=== PATIENT | female | born 1995 | race Caucasian/White ===

== ENCOUNTER 2024-08-22 13:19 | Observation (INO) | payer OTHER, SELFPAY ==
[2024-08-22] VITALS (13 sets, daily range): BP systolic 110–115; BP diastolic 62–72; PULSE 81–97; TEMP 36.6; O2SAT 97–99; BMI 51.0
--- OUTSIDE RECORDS SUMMARY | 2024-08-22 13:34 | XMS_ITS | Clinical Summary ---
Author Organization [facility] Care Team Providers Care Business Services Clerk Name Role Phone Unavailable Primary Care Provider Unavailabl e Social History Tobacco Use Types Packs/Day Years Used Date Smoking Tobacco: Never Assessed Comments Unknown Sex and Gender Information Value Date Recorded Sex Assigned at Not on file Legal Sex Female 11:46 AM MANAGEMENT MANAGER Gender Identity Not on file Sexual Orientation Not on file Plan of Treatment Health Maintenance Due Date Last Done Comments Hepatitis C Virus (HCV) Screening 1994 Pap Smear 12/03/2015 Influenza Immunization (#1) 2023 12/22/2020 SARS-COV-2 Immunization ( season) 2023 09/05/2020, 08/02/2020 Respiratory Syncytial Virus (RSV) Immunization (Adult) (1 - 1-dose 75+ series) 2069 Hepatitis B Immunization Completed 996, 02/02/1995, 1994 DTaP/Tdap/Td Immunization Discontinued 2016, 05/21/1996, 06/22/1995, Additional history exists Meningococcal Immunization (ACWY) Aged Out 05/11/2016 No longer eligible based on patient's age to complete this topic TdaP Immunization Completed 05/11/2016 Human Papillomavirus (HPV) Immunization Discontinued 11/17/2016, 07/13/2016, 05/11/2016 Pneumococcal Immunization Combined Aged Out No longer eligible based on patient's age to complete this topic Rotavirus Immunization Aged Out No lo nger eligible based on patient's age to complete this topic
--- OUTSIDE RECORDS SUMMARY | 2024-08-22 13:34 | XMS_ITS | Referral Summary ---
Author Organization [facility] at the [facility] Office Center Address [address] [place] [address] Care Team Providers Care Flatbed Driver Name Role Phone Kwame Barragan MD Primary Care Provider [phone] Allergies Active Allergy Reactions Criticality Noted Date Comments Amoxicillin Hives,Rash Medium 10/25/2018 rash Medications ascorbic acid (VITAMIN C) 100 mg tablet Vitamin C Active omeprazole (PriLOSEC) 20 mg capsule Take 1 capsule by mouth daily Active triamcinolone (KENALOG) 0.1 % creamIndication s:Rash Apply to affected area 1-2 times daily as needed. Avoid face and groin. 30 g 5 05/03/2022 Active fluconazole (DIFLUCAN) 150 mg tabletIndicatio ns:Rash Take 1 tablet (150 mg total) by mouth as directed Take one tab now. Repeat in 7 days if symptoms persist. 2 tablet 05/06/2022 Active Active Problems No known active problems Immunizations Immunization Administration Dates Next Due DTP / HiB 05/21/1996, 6,04/18/1995,02/02 HPV9 11/17/2016,07/13/2016,05/11/2016 Hep B, Adolescent or Pediatric 06/22/1995,1994,1994 Influenza, Quadrivalent, Spl it, Preservative Free, Intramuscular 12/22/2020 Influenza, Unspecified 01/07/2022 MMR 05/21/1996 Meningococcal MCV4P (Menactra) 05/11/2016 OPV 06/22/1995,04/18/1995,02/02/1995 Tdap 05/11/2016 Varicella 01/19/2021,12/22/2020 Social History Tobacco Use Types Packs/Day Years Used Date Smoking Tobacco: Never Smokeless Tobacco: Never Tobacco Cessation:Counseling Given: Not Answered Alcohol Use Standard Drinks/Week Comments Yes 0 (1 standard drink = 0.6 oz pur e alcohol) AUDIT-C Answer Date Recorded Q1: How often do you have a drink containing alc ohol? Monthly or less 05/03/2022 Q2: How many drinks containi ng alcohol do you have on a typical day when you are drinking? 1 or 2 05/03/2022 Frequency of Binge Drinking Not on file 04/21 PHQ-2 Answer Date Recorded PHQ-2 Total Score (If total score is 3 or more points, staff should administer the PHQ-9) 0 05/03/2022 Personal Safety Answer Date Recorded Getting School Help Needed Not on file 03/06 Comments No Sex and Gender Information Value Date Recorded Sex Assigned at Not on file Legal Sex Female 8:58 PM SAND CASTER Gender Identity Female 05/01/2022 10:35 AM SAND CASTER Sexual Orientation Straight 05/01/2022 10 :35 AM SAND CASTER Last Filed Vital Signs Vital Sign Reading Time Taken Comments Blood Pressure 137/83 08/27/2022 11:50 PM CDT Pulse 108 08/27/2022 11:50 PM CDT Temperature 36.5 C (97.7 F) 08/27/2022 11:50 PM CDT Respiratory Rate 17 08/27/2022 11:5 0 PM CDT Oxygen Saturation 97% 08/27/2022 11: 50 PM CDT Inhaled Oxygen Concentration - - Weight 137.2 kg (302 lb 7.5 oz) 08/28/2022 1:04 AM CDT Height 162.6 cm (5' 4) 08/27/2022 11:5 0 PM CDT Body Mass Index 51.92 08/27/2022 11:50 PM CDT Plan of Treatment [place] [address] [facility] [address] [facility] [address] [facility] Care Teams Flatbed Driver Relationship Specialty Start Date End Date Kwame Barragan MD PCP - General Family Practice 03/25/23
--- OUTSIDE RECORDS SUMMARY | 2024-08-22 13:34 | XMS_ITS | Clinical Summary ---
Author Organization [facility] at the [facility] Office Center Address [address] [place] [address] Care Team Providers Care Skein Yarn Dyer Helper Name Role Phone Kwame Barragan MD Primary Care Provider [phone] Allergies Active Allergy Reactions Criticality Noted Date [...] 05/11/2016 OPV 06/22/1995,04/18/1995,02/02/1995 Tdap 05/11/2016 Varicella 01/19/2021,12/22/2020 Surgical History Surgery Date Site/Laterality Comments TONSILECTOMY, ADENOIDECTOMY, BILATERAL MYRINGOTOMY AND TUBES SECTION Medical History Medical History Date Comments GERD (gastroesophageal reflux disease) Gestational diabetes Family History Medical History Relation Name Comments No Known Problems Father COPD Mother Diabetes Mother Heart failure Mother Relation Name Status Comments Father Alive Mother Alive Social History Tobacco Use Types Packs/Day Years [...] on file Legal Sex Female 8:58 PM PHONE ENGINEER Gender Identity Female 05/01/2022 10:35 AM PHONE ENGINEER Sexual Orientation Straight 05/01/2022 10 :35 AM PHONE ENGINEER Obstetrics History Last Filed Vital Signs Vital Sign Reading [...] 08/27/2022 11:50 PM CDT Plan of Treatment Health Maintenance Due Date Last Done Comments Cervical Cancer Screening 1994 Hepatitis C Screening 1994 Regular Well Visit/Exam 18-64 2012 Depression Screening 05/03/2023 05/03/2022, 10/26/19 19 Covid-19 Vaccine ( season) 2023 09/05/2020, 08/02/2020 Influenza Vaccine (Season Ended) 2024 01/07/2022, 12/22/2020 DTaP/Tdap/Td Vaccine (6 - Td or Tdap) 05/11/2026 05/11/2016, 05/21/1996, 06/22/1995, Additional history exists Hepatitis B Screening Completed 06/22/1995 , 02/02/1995, 1994 HPV Vaccines Completed 11/17/2016, 06/20, 05/11/2016 Varicella Vaccines Completed 01/19/2021, 12/22/2020 Pneumococcal vaccine <65 Aged Out No longer eligible based on patient's age to complete this topic Insurance [facility] [id number] [facility] C[facility] [address] [facility] CORE [facility] Care Teams Skein Yarn Dyer Helper Relationship Specialty Start Date End Date Kwame Barragan MD PCP - General Family Practice 03/25/23
[2024-08-22 14:06] LABS: Add Urine Microscopic? YES; Appearance Urine Cloudy (Clear); Bacteria Urine 2+ /hpf; Bilirubin Urine Negative (Negative); Blood Urine Negative (Negative); Color Urine Yellow (Yellow); Glucose Urine UA Negative (Negative); Ketones Urine Trace mg/dL (Negative); Leukocyte Esterase Ur 2+ LEU/UL (Negative); Nitrate Urine Negative (Negative); Non Pathogenic Casts 0-2; Protein Urine Trace mg/dL (Negative); Specific Grav Ur 1.025 (1.001-1.035); Squamous Epithelial Cell Urine Moderate /hpf (Few); WBC Urine 21-50 /hpf (0-3)
--- NOTE | 2024-08-22 14:10 | OBADM ---
This patient, Severino Rodriguez, admitted to the OB room OB Post 115 for observation. Patient/family oriented to hospital policies and general routines including ID bracelet, bed and alarms, visiting hours, pain management, procedures, bathroom and other care routines, personal items, smoking policy, room service/diet, and visiting hours. Patient/Family are encouraged to report perceived risks to care and to ask questions if they do not understand what they are told or what they should do.
--- NOTE | 2024-08-23 08:00 | P.PNOB_ITS ---
OB - Triage/Final Diagnosis Visit Information Reason for evaluation: threatened labor Comments/Additional reasons for admission: I have assessed the risk for this patient, Severino Rodriguez, and determined that she would benefit from observation care. Evaluation Laboratory results: Laboratory Tests 08/22/24 13:54 Urine Color Yellow Urine Appearance Cloudy H Urine pH 6.0 Ur Specific [place] 1.025 Urine Protein Trace Urine Glucose (UA) Negative Urine Ketones Trace H Ur Blood (Man) Negative Urine Nitrate Negative Urine Bilirubin Negative Urine Urobilinogen 1.0 Leukocyte Esterase Rfl 2+ H Urine RBC 3-5 H Urine WBC 21-50 H Ur Squamous Epith Cells Moderate Urine Bacteria 2+ H Urine Casts 0-2 Vital signs: Vital Signs - 24 hr 08/22/24 13:43 08/22/24 13:43 08/22/24 13:45 Temperature Pulse Rate 97 Blood Pressure 110/72 Pulse Oximetry 98 98 08/22/24 13:48 08/22/24 13:53 08/22/24 13:58 Temperature Pulse Rate Blood Pressure Pulse Oximetry 99 97 98 08/22/24 14:02 08/22/24 14:03 08/22/24 14:08 Temperature Pulse Rate 82 Blood Pressure 115/62 Pulse Oximetry 98 98 08/22/24 14:13 08/22/24 14:18 08/22/24 14:23 Temperature Pulse Rate Blood Pressure Pulse Oximetry 98 99 98 08/22/24 14:28 08/22/24 14:30 Temperature 97.9 F Pulse Rate Blood Pressure Pulse Oximetry 99
== END 2024-08-22 14:54 | disposition home or self-care (01) ==
PROVIDERS: Admitting Provider Obstetrics & Gynecology; Visit Provider Obstetrics & Gynecology
DX: O47.02 False labor before 37 completed weeks of gestation, second trimester (principal); Z3A.23 23 weeks gestation of pregnancy
CPT/HCPCS: 81001; G0378; G0379

== ENCOUNTER 2024-08-28 14:28 | Observation (INO) | payer OTHER, SELFPAY ==
[2024-08-28] VITALS (14 sets, daily range): PULSE 78–96; O2SAT 97–99; BMI 50.7
--- NOTE | ~2024-08-28 | US_ITS ---
LIMITED OBSTETRIC ULTRASOUND. Ordering provider: Milton Li MD History: . vaginal bleeding . Comparison: None. FINDINGS: MATERNAL CERVIX: Measures 3.9 cm. Cervix trace is 5.8 cm . PRESENTATION: Vertex. Longitudinal lie. PLACENTAL LOCATION: Anterior fundal. No previa. HEART RATE: 150 bpm (normal is between 110 to 160 bpm). AMNIOTIC FLUID INDEX: Largest vertical pocket is 6.2 cm. OTHER: Maternal ovaries not visualized. IMPRESSION: Single live fetus of cephalic presentation. Reviewed, dictated and finalized at location A.
--- OUTSIDE RECORDS SUMMARY | 2024-08-28 16:00 | XMS_ITS | Referral Summary ---
Author Organization [facility] at the [facility] Office Center Address [address] [place] [address] Care Team Providers Care Clinic Nurse Name Role Phone Kwame Barragan MD Primary Care Provider [phone] Allergies Active Allergy Reactions Criticality Noted Date [...] on file Legal Sex Female 8:58 PM CARE MGR Gender Identity Female 05/01/2022 10:35 AM CARE MGR Sexual Orientation Straight 05/01/2022 10 :35 AM CARE MGR Last Filed Vital Signs Vital Sign Reading [...] Treatment [place] [address] [facility] [place] [address] [facility] [place] [address] [facility] Care Teams Clinic Nurse Relationship Specialty Start Date End Date Kwame Barragan MD PCP - General Family Practice 03/25/23
--- OUTSIDE RECORDS SUMMARY | 2024-08-28 16:00 | XMS_ITS | Clinical Summary ---
Author Organization [facility] at the [facility] Office Center Address [address] [place] [address] Care Team Providers Care Character Artist Name Role Phone Kwame Barragan MD Primary Care Provider [phone] Allergies Active Allergy Reactions Criticality Noted Date [...] on file Legal Sex Female 8:58 PM SALARY AND WAGE ADMINISTRATOR Gender Identity Female 05/01/2022 10:35 AM SALARY AND WAGE ADMINISTRATOR Sexual Orientation Straight 05/01/2022 10 :35 AM SALARY AND WAGE ADMINISTRATOR Obstetrics History Last Filed Vital Signs Vital [...] patient's age to complete this topic Insurance [facility] [place] [address] [facility] CORE [facility] [place] [address] [facility] CORE [facility] Care Teams Character Artist Relationship Specialty Start Date End Date Kwame Barragan MD PCP - General Family Practice 03/25/23
--- OUTSIDE RECORDS SUMMARY | 2024-08-28 16:00 | XMS_ITS | Clinical Summary ---
Author Organization [facility] Care Team Providers Care Gamb Cutter Name Role Phone Unavailable Primary Care Provider Unavailabl e Social History Tobacco Use Types Packs/Day Years Used Date Smoking Tobacco: Never Assessed Comments Unknown Sex and Gender Information Value Date Recorded Sex Assigned at Not on file Legal Sex Female 11:46 AM LINEN CHECKER Gender Identity Not on file Sexual Orientation [...]
[2024-08-28 16:30] LABS: Add Urine Microscopic? YES; Appearance Urine Clear (Clear); Bacteria Urine None Seen /hpf; Bilirubin Urine Negative (Negative); Blood Urine Trace (Negative); Color Urine Yellow (Yellow); Glucose Urine UA Negative (Negative); Ketones Urine Negative (Negative); Leukocyte Esterase Ur 1+ LEU/UL (Negative); Need Manual Microscopic Reviewed; Nitrate Urine Negative (Negative); Non Pathogenic Casts 0-2; Protein Urine Negative (Negative); RBC Urine 0-2 /hpf (0-2); Specific Grav Ur 1.004 (1.001-1.035); Squamous Epithelial Cell Urine Occasional /hpf (Few); Urobilinogen Urine 0.2 mg/dL (<2.0); WBC Urine 0-5 /hpf (0-3); pH Urine 7.5 (5.0-9.0)
--- NOTE | 2024-08-28 17:02 | PC.NURSE ---
Dr. Li returned page at [phone]. Notified of pt. here for vaginal bleeding,, cramping but no contractions, bleeding is light and pink/red. No recent sexual activity. Orders received for SVE, and US for cervical length and placenta. SVE closed thick and high.
--- NOTE | 2024-08-28 18:05 | PC.NURSE ---
Dr. Li returned page. Notified him of pt. SVE closed thick and high and US results. Order received for discharge with labor precautions.
--- NOTE | 2024-09-05 13:40 | P.PNOB_ITS ---
OB - Triage/Final Diagnosis Visit Information Comments/Additional reasons for admission: I have assessed the risk for this patient, Severino Rodriguez, and determined that she would benefit from observation care. Evaluation Laboratory results: Laboratory Tests 08/28/24 16:08 Urine Color Yellow Urine Appearance Clear Urine pH 7.5 Ur Specific [place] 1.004 Urine Protein Negative Urine Glucose (UA) Negative Urine Ketones Negative Ur Blood (Man) Trace Urine Nitrate Negative Urine Bilirubin Negative Urine Urobilinogen 0.2 Add Ur Microanalysis Reviewed Leukocyte Esterase Rfl 1+ H Urine RBC 0-2 Urine WBC 0-5 Ur Squamous Epith Cells Occasional Urine Bacteria None seen Urine Casts 0-2 Final Diagnosis (1) Spotting affecting : Code(s): O26.859 - Spotting complicating , unspecified trimester Status: Acute
== END 2024-08-28 18:15 | disposition home or self-care (01) ==
PROVIDERS: Admitting Provider Obstetrics & Gynecology; Visit Provider Obstetrics & Gynecology
DX: O26.852 Spotting complicating pregnancy, second trimester (principal); Z3A.24 24 weeks gestation of pregnancy
CPT/HCPCS: 76815; 81001; 87086; G0378; G0379

== ENCOUNTER 2024-10-06 20:47 | Observation (INO) | payer OTHER, SELFPAY ==
--- OUTSIDE RECORDS SUMMARY | 2024-10-06 20:52 | XMS_ITS | Referral Summary ---
Author Organization [facility] at the [facility] Office Center Address [address] [place] [address] Care Team Providers Care Molding Associate Name Role Phone wKame Barragan MD Primary Care Provider [phone] Allergies Active Allergy Reactions Criticality Noted Date [...] on file Legal Sex Female 8:58 PM FINGERER Gender Identity Female 05/01/2022 10:35 AM FINGERER Sexual Orientation Straight 05/01/2022 10 :35 AM FINGERER Last Filed Vital Signs Vital Sign Reading [...] Treatment [place] [address] [facility] [place] [address] [facility] [place] [address] [facility] H[facility]/PPO Address: [address] [address] Care Teams Molding Associate Relationship Specialty Start Date End Date Kwame Barragan MD PCP - General Family Practice 03/25/23
--- OUTSIDE RECORDS SUMMARY | 2024-10-06 20:52 | XMS_ITS | Clinical Summary ---
Author Organization [facility] at the [facility] Office Center Address [address] [place] [address] Care Team Providers Care Architect Manager Name Role Phone Kwame Barragan MD Primary Care Provider [phone] Allergies Active Allergy Reactions Criticality Noted Date [...] on file Legal Sex Female 8:58 PM TEMPERATURE REGULATOR PYROMETER Gender Identity Female 05/01/2022 10:35 AM TEMPERATURE REGULATOR PYROMETER Sexual Orientation Straight 05/01/2022 10 :35 AM TEMPERATURE REGULATOR PYROMETER Obstetrics History Last Filed Vital Signs Vital [...] ( season) 2023 09/05/2020, 08/02/2020 Influenza Vaccine (#1) 2024 01/07/2022, 2020 DTaP/Tdap/Td Vaccine (6 - Td or Tdap) 05/11/2026 05/11/2016, 05/21/1996, 06/22/1995, Additional history exists Hepatitis B Screening Completed 06/22/1995 , 02/02/1995, 1994 HPV Vaccines Completed 11/17/2016, 06/20, 05/11/2016 Varicella Vaccines Completed 01/19/2021, 12/22/2020 Pneumococcal vaccine <65 Aged Out No longer eligible based on patient's age to complete this topic Insurance [place] [address] [facility] [place] [address] [facility] C[facility] Care Teams Architect Manager Relationship Specialty Start Date End Date Kwame Barragan MD PCP - General Family Practice 03/25/23
--- OUTSIDE RECORDS SUMMARY | 2024-10-06 20:52 | XMS_ITS | Encounter Summary ---
Author Organization [facility] Address [facility] [place] [address] Care Team Providers Care [employer] Launch Commander Name Role Phone Efe Can MD Primary Care Provider [phone] None, Provider Primary Care Provider Kwame Barnhart MD Primary Care Provider [phone] Encounter Details Date Type Department Care Team (Late st Contact Info) Description 12/09/2021 Hospital Follow-up Call [facility] [place] [address] Melissa Martines RN Social History Tobacco Use Types Packs/Day Years Used Date Smoking Tobacco: Never Smokeless Tobacco: Never Alcohol Use Standard Drinks/Week Comments Not Currently 0 (1 standard drink = 0.6 oz pur e alcohol) Humiliation, Afraid, Rape, and Kick questionnair e Answer Date Recorded Within the last year, have y ou been afraid of your partner or ex-partner? No 08/08/2021 Within the last year, have y ou been humiliated or emotionally abused in other ways by your partner or ex-partner? No Within the last year, have y ou been kicked, hit, slapped, or otherwise physically hurt by your partner or ex-partner? No 08/08/2021 Within the last year, have y ou been raped or forced to have any kind of sexual activity by your partner or ex-partner? No 08/08/2021 Depression Answer Date Recor ded Last EPDS Total Score 0 12/07/2021 Last EPDS Self Harm Result Never 12/07 Comments No Sex and Gender Information Value Date Recorded Sex Assigned at Not on file Legal Sex Female 8:25 PM CDT Gender Identity Not on file Sexual Orientation Not on file COVID-19 Exposure Response Date Recorded In the last 10 days, have yo u been in contact with someone who was confirmed or suspected to have Coronavirus/COVID-19? No / Unsure 12/01/2021 12:20 AM CDT documented as of this encounter Functional Status * RETIRED Are you deaf or do you have serious difficulty hearing Answer Date of Assessment Author Status No 12/01/2021 12:27 AM CDT Acti ve * RETIRED Are you blind or do you have serious difficulty seeing, even when wearing glasses? Answer Date of Assessment Author Status No 12/01/2021 12:27 AM CDT Acti ve * Do you have serious difficulty walking or climbing stairs? Answer Date of Assessment Author Status No 12/01/2021 12:27 AM CDT Yanet Cano RN Active * Do you have difficulty dressing or bathing? Answer Date of Assessment Author Status No 12/01/2021 12:27 AM CDT Yanet Cano RN Active * Because of a physical, mental, or emotional condition, do you have difficulty doing errands alone such as visiting a doctor's office or shopping? Answer Date of Assessment Author Status No 12/01/2021 12:27 AM CDT Yanet Cano RN Active documented as of this encounter Mental Status * Because of a physical, mental, or emotional condition, do you have serious difficulty concentrating, remembering, or making decisions? Answer Entry Date Author Status No 12/01/2021 12:27 AM CDT Yanet Cano RN Active documented in this encounter Plan of Treatment Not on file documented as of this encounter Visit Diagnoses Not on filedocumented in this encounter Additional Health Concerns Infection Onset Date Last Indicated Resolved Time COVID-19 Rule Out 03/19/2024 03/19/2024 03/19/2024 1:56 PM FIELD OPERATIONS TECHNICIAN documented as of this encounter Care Teams [employer] Launch Commander Relationship Specialty Start Date End Date Efe Can MD [address] [place] [id number] PCP - General OBGYN 08/03/21 05/21/22 None, Provider, PCP - General UNKNOWN PHYSICIAN SPECIALTY 05/22/22 02/21/23 Kwame Barragan MD [address] [place] [address] PCP - General FAMILY PRACTICE 02/22/23 documented as of this encounter
--- OUTSIDE RECORDS SUMMARY | 2024-10-06 20:52 | XMS_ITS | Clinical Summary ---
Author Organization [facility] Address [address] [place] [address] Care Team Providers Care Bellperson Name Role Phone Kwame Barragan MD Primary Care Provider [phone] Allergies Active Allergy Reactions Criticality Noted Date Comments Amoxicillin Rash Medium 10/06/2015 rash Medications Omeprazole Magnesium (PRILOSEC OR) Take 20 mg by mouth daily. Active letrozole (FEMARA) 2.5 MG tablet TAKE 1 TABLET BY MOUTH DAILY ON CYCLE DAYS 5 TO 9 DIRECTED 02/21/2024 Active Active Problems Problem Noted Date Diagnosed Date Acute postoperative anemia due to expected blood loss 12/07/2021 Failure to progress in labor ([facility]) Delivery of by section ([facility]) 12/07/2021 ([facility]) 12/01/2021 Class 3 severe obesity with body mass index (BMI) of 50.0 to 59.9 in adult 12/01/2021 Resolved Problems Problem Noted Date Diagnosed Date Resolved Date Gestational diabetes ([facility]) 12/01/2021 02/22/2023 Subluxation of symphysis pub is during in third trimester ([facility]) 09/08/2021 0 09/08/2021 Pelvic pain affecting ([facility]) 09/08/2021 12/07/2021 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 Immunizations Immunization Administration Dates Next Due Dtp/Hib (Tetramune) 05/21/1996,06/22/1995,1995,02/02/1995 HPV GARDASIL 9-VALENT 11/17/2016,07/13/2016,04/22 Hepatitis B Pediatric 06/22/1995,02/02/1995,11/19 Influenza (Generic) 01/07/2022 Influenza Adult (Generic) 12/22/2020 MMR (MMRII) 05/21/1996 Meningococcal (Menactra) 05/11/2016 Polio Opv (Generic) 06/22/1995,04/18/1995,1994 Tdap (Generic) 05/11/2016 Varicella (Varivax) 01/19/2021,12/22/2020 Family History Medical History Relation Comments Arthritis Father Asthma Father Hypertension Father Diabetes Maternal Aunt 1 Early Maternal Aunt 2 Arthritis Maternal Grandfather Diabetes Maternal Grandfather Heart Disease Maternal Grandfather Hypertension Maternal Grandfather Arthritis Maternal Grandmother Cancer Maternal Grandmother Breast Canc er Heart Disease Maternal Grandmother Hypertension Maternal Grandmother Miscarriages / Stillbirths Maternal Grandmother Stroke Maternal Grandmother Arthritis Mother COPD Mother Diabetes Mother Heart Disease Mother Hyperlipidemia Mother Hypertension Mother Kidney Disease Mother Hypertension Paternal Grandmother Stroke Paternal Grandmother Vision loss Paternal Grandmother Cancer Sister Relation Status Comments Father Alive Maternal Aunt 1 Maternal Aunt 2 Maternal Grandfather Maternal Grandmother Mother Alive Paternal Grandmother Sister Social History Tobacco Use Types Packs/Day Years Used Date Smoking Tobacco: Never Passive Smoke Exposure: Never Smokeless Tobacco: Never Tobacco Cessation:Counseling Given: No Alcohol Use Standard Drinks/Week Comments Yes 6 (1 standard drink = 0.6 oz pur e alcohol) Occasional use Humiliation, Afraid, Rape, and Kick questionnair e [...] by your partner or ex-partner? No 08/08/2021 PHQ-2 Answer Date Recorded Patient Health Questionnaire-2 Score 0 09/02/2023 Depression Answer Date Recor ded Last EPDS Total Score 0 12/07/2021 Last EPDS Self Harm Result Never 12/07 Comments Unknown Sex and Gender Information Value Date Recorded Sex Assigned at Not on file Legal Sex Female 8:25 PM CDT Gender Identity Not on file Sexual Orientation Not on file Last Filed Vital Signs Vital Sign Reading Time Taken Comments Blood Pressure 126/88 03/19/2024 11:13 AM CONSTRUCTION RIGGER Pulse 92 03/19/2024 11:13 AM CONSTRUCTION RIGGER Temperature 36.3 C (97.4 F) 03/19/2024 11:13 AM CONSTRUCTION RIGGER Respiratory Rate 16 2023 1:15 PM CDT Oxygen Saturation 96% 03/19/2024 11:13 AM CONSTRUCTION RIGGER Inhaled Oxygen Concentration - - Weight 141.1 kg (311 lb) 03/19/2024 11:13 AM CONSTRUCTION RIGGER Height 165.1 cm (5' 5) 2023 11:43 AM CDT Body Mass Index 51.75 2023 11:43 AM CDT Plan of Treatment Health Maintenance Due Date Last Done Comments Cervical Cancer Screening Pap Smear (Age 21 to 29) Every 3 Years 1994 Cervical Cancer Screening 1994 Annual Physical 1997 Hepatitis C 2012 COVID-19 Vaccine ( season) 2023 09/05/2020, 08/02/2020 PHQ-2 (Physician [place]) 03/21/2024 09/02/2023 DTaP, Tdap and Td Vaccines (2 - Td or Tdap) 05/11/2026 05/11/2016, 05/21/1996, 06/22/1995, Additional history exists Hepatitis B Vaccines Completed 06/22/1995, 02/02/1995, 1994 Meningococcal Vaccine Aged Out 05/11/2016 No britt rain eligible based on patient's age to complete this topic HPV Vaccines Completed 11/17/2016, 06/20, 05/11/2016 Meningococcal B Vaccine Aged Out No l onger eligible based on patient's age to complete this topic Pneumococcal Vaccine: Pediatrics (0 to 5 Years) and At-Risk Patients (6 to 49 Years) Aged Out No longer eligible based on patient's age to complete this topic RSV Immunizations Under 20 Months Aged Out No longer eligible based on patient's age to complete this topic Insurance [facility] Advance Directives * Full Code (Latest Code Status on File) Date Activated Date Inactivated Comments 12/04/2021 1:11 PM 12/07/2021 6:54 PM * Full Code Date Activated Date Inactivated Comments 12/03/2021 6:13 PM 12/04/2021 1:11 PM * Full Code Date Activated Date Inactivated Comments 12/01/2021 1:07 AM 12/03/2021 6:13 PM Care Teams Bellperson Relationship Specialty Start Date End Date Kwame Barragan MD [address] [place] [id number] PCP - General FAMILY PRACTICE 02/22/23
--- OUTSIDE RECORDS SUMMARY | 2024-10-06 20:52 | XMS_ITS | Encounter Summary ---
Author Organization [facility] Address [facility] [place] [address] Care Team Providers Care Theater Usher Name Role Phone Kwame Barragan MD Primary Care Provider [phone] Encounter Details Date Type Department Care Team (Late st Contact Info) Description 09/29/[address] [facility] Multispecialty Care - [facility] [address], [address] [place] [id number] Margarita Ochoa MD [address] [place] [address] [phone] Prescription Question Social History Tobacco Use Types Packs/Day Years Used Date Smoking Tobacco: Never Smokeless Tobacco: Never Alcohol Use Standard Drinks/Week Comments Yes 6 [...] on file Sexual Orientation Not on file documented as of this encounter Functional Status [...] Date Author Status No 12/01/2021 12:27 AM KARLAT Yanet Cano RN Active documented in this encounter Plan of Treatment Not on file documented as of this encounter Visit Diagnoses Not on filedocumented in this encounter Additional Health Concerns Infection Onset Date Last Indicated Resolved Time COVID-19 Rule Out 03/19/2024 03/19/2024 03/19/2024 1:56 PM DRESSAGE JUDGE Assessment Noted Time PHQ-9 Depression Total Score: 0 09/02/19 2:45 PM CDT documented as of this encounter Care Teams Theater Usher Relationship Specialty Start Date End Date Kwame Barragan MD [address] [place] [address] PCP - General FAMILY PRACTICE 02/22/23 documented as of this encounter
--- OUTSIDE RECORDS SUMMARY | 2024-10-06 20:53 | XMS_ITS | Clinical Summary ---
Author Organization [facility] Care Team Providers Care Appliance Line Assembler Name Role Phone Unavailable Primary Care Provider Unavailabl e Social History Tobacco Use Types Packs/Day Years Used Date Smoking Tobacco: Never Assessed Comments Unknown Sex and Gender Information Value Date Recorded Sex Assigned at Not on file Legal Sex Female 11:46 AM COMMUNITY ADMINISTRATOR Gender Identity Not on file Sexual Orientation [...]
[2024-10-06 21:13] VITALS: BP 139/56; PULSE 89
[2024-10-06 21:16] VITALS: BP 110/71; PULSE 83
[2024-10-06 21:30] LABS: Add Urine Microscopic? YES; Appearance Urine Clear (Clear); Glucose Urine UA Negative (Negative); Leukocyte Esterase Ur 1+ LEU/UL (Negative); Nitrate Urine Negative (Negative); Non Pathogenic Casts 0-2; Specific Grav Ur 1.014 (1.001-1.035)
[2024-10-06 21:31] VITALS: BP 131/58; PULSE 79
[2024-10-06 21:46] VITALS: BP 135/50; PULSE 85
[2024-10-06 21:52] VITALS: BMI 52.0
[2024-10-06 22:01] VITALS: BP 126/43; PULSE 82
[2024-10-06 22:17] VITALS: BP 115/51; PULSE 79
[2024-10-06] MEDS: NITROFURANTOIN MONOHYD MACROCR 100 MG CAP PO (22:30)
--- NOTE | 2024-10-08 09:36 | P.PNOB_ITS ---
OB - Triage/Final Diagnosis Visit Information Reason for evaluation: other (Pelvic pain, possibly UTI) Comments/Additional reasons for admission: I have assessed the risk for this patient, Severino Rodriguez, and determined that she would benefit from observation care. Evaluation Laboratory results: Laboratory Tests 10/06/24 21:19 Urine Color Yellow Urine Appearance Clear Urine pH 6.0 Ur Specific [place] 1.014 Urine Protein Negative Urine Glucose (UA) Negative Urine Ketones Trace H Ur Blood (Man) Negative Urine Nitrate Negative Urine Bilirubin Negative Urine Urobilinogen 0.2 Leukocyte Esterase Rfl 1+ H Urine RBC 3-5 H Urine WBC 6-10 H Ur Squamous Epith Cells Few Urine Bacteria Rare Urine Casts 0-2
== END 2024-10-06 22:00 | disposition home or self-care (01) ==
PROVIDERS: Admitting Provider Obstetrics & Gynecology Gynecology; Visit Provider Obstetrics & Gynecology Gynecology
DX: O26.893 Other specified pregnancy related conditions, third trimester (principal); R10.2 Pelvic and perineal pain; Z3A.29 29 weeks gestation of pregnancy
CPT/HCPCS: 81001; 87086; A9270; G0378; G0379

== ENCOUNTER 2024-10-31 11:15 | Outpatient (RCR) | payer OTHER, SELFPAY ==
--- NOTE | ~2024-10-31 | US_ITS ---
EXAMINATION: US OB BPP wo non-stress DATE: 10/31/2024 13:26 CDT INDICATION: Evaluate LANE. Decreased movement. TECHNIQUE: Real-time transabdominal obstetric ultrasound. FINDINGS: No prior studies for comparison. There is a single living fetus in vertex presentation. The placenta is anterior without placenta pre via. cardiac activity and movement is noted with a heart rate of 150 beats per minute. A FI measures 15.3 cm. Biophysical profile: breathin of 2 movement: 2 of 2 tone: 2 of 2 Amniotic flud pocket: 2 of 2 Total score: 8 of 8 IMPRESSION: 1. Single living intrauterine in vertex presentation. 2: Total biophysical profile score of 8/8. 3: Normal LANE measures 15.3 cm. Reviewed, dictated and finalized at location A.
[2024-10-31 13:23] VITALS: BP 130/63; PULSE 83
== END 2024-12-19 17:43 | disposition other institution (70) ==
LOC: ANHOBOP 11:15
PROVIDERS: Visit Provider Obstetrics & Gynecology
DX: O36.8130 Decreased fetal movements, third trimester, not applicable or unspecified (principal); Z3A.33 33 weeks gestation of pregnancy
CPT/HCPCS: 59025; 76819

== ENCOUNTER 2024-11-27 15:58 | Outpatient (CLI) | payer OTHER, SELFPAY ==
--- NOTE | ~2024-11-27 | US_ITS ---
US OB limited 11/27/2024 17:42 Indication: Amniotic fluid leak Procedure: Limited obstetrical ultrasound Comparison: Ultrasound dated 10/31/2024 Findings: There is a single living intrauterine in vertex presentation. heart rate 151 BPM. Placenta is anterior without previa. ALNE is normal measuring 10.5 cm. Impression: 1: Normal LANE measures 10.5 cm. Reviewed, dictated and finalized at location O. Impression: 1: Normal LANE measures 10.5 cm.
[2024-11-27 16:31] VITALS: BP 147/70; PULSE 82
[2024-11-27 16:46] VITALS: BP 138/75; PULSE 87
--- NOTE | 2024-11-27 16:55 | PC.NURSE ---
Dr Cunningham informed of neg ROM plus, order received for LANE.
--- OUTSIDE RECORDS SUMMARY | 2024-11-27 17:04 | XMS_ITS | Encounter Summary ---
Author Organization [facility] Address [facility] [place] [address] Care Team Providers Care Diamond Powder Mixer Name Role Phone Efe Can MD Primary Care Provider [phone] None, Provider Primary Care Provider Kwame Barnhart MD Primary Care Provider [phone] Encounter Details Date Type Department Care Team (Late st Contact Info) Description 12/09/2021 Hospital Follow-up Call [facility] [place] [address] Melissa Martines RN Social History [...] Rule Out 03/19/2024 03/19/2024 03/19/2024 1:56 PM FELLER BUNCHER OPERATOR documented as of this encounter Care Teams Diamond Powder Mixer Relationship Specialty Start Date End Date Efe Can MD [address] [place] [id number] PCP - General OBGYN 08/03/21 05/21/22 None, Provider, PCP - General UNKNOWN PHYSICIAN SPECIALTY 05/22/22 02/21/23 Kwame Barragan MD [address] [place] [address] PCP - General FAMILY PRACTICE 02/22/23 12/02/24 documented as of this encounter
--- OUTSIDE RECORDS SUMMARY | 2024-11-27 17:04 | XMS_ITS | Clinical Summary ---
Author Organization [facility] Address [address] [place] [address] Care Team Providers Care Buzzsaw Operator Name Role Phone Kwame Barragan MD Primary Care Provider [phone] Allergies Active Allergy Reactions Criticality Noted Date [...] on file Legal Sex Female 8:58 PM POUCH MAKER Gender Identity Female 05/01/2022 10:35 AM POUCH MAKER Sexual Orientation Straight 05/01/2022 10 :35 AM POUCH MAKER Obstetrics History Last Filed Vital Signs Vital [...] patient's age to complete this topic Insurance [facility] [place] [address] [facility] [place] [address] [facility] [place] [address] [facility] HMO/PPO Address[id number] [place] [address] Care Teams Buzzsaw Operator Relationship Specialty Start Date End Date Kwame Barragan MD PCP - General Family Practice 03/25/23
--- OUTSIDE RECORDS SUMMARY | 2024-11-27 17:04 | XMS_ITS | Clinical Summary ---
Author Organization [facility] Address [address] [place] [address] Care Team Providers Care Security Flex Utility Officer Name Role Phone Kwame Barragan MD Primary Care Provider [phone] Allergies Active Allergy Reactions Criticality Noted Date [...] loss 12/07/2021 Failure to progress in labor ([facility]) Delivery of by section ([facility]) 12/07/2021 ([facility]) 12/01/2021 Class 3 severe obesity with body mass index (BMI) of 50.0 to 59.9 in adult 12/01/2021 Resolved Problems Problem Noted Date Diagnosed Date Resolved Date Gestational diabetes ([facility]) 12/01/2021 02/22/2023 Subluxation of symphysis pub is during in third trimester ([facility]) 09/08/2021 0 09/08/2021 Pelvic pain affecting ([facility]) 09/08/2021 12/07/2021 Overview (09/08/2021): Symphysis pubis [...] Comments Blood Pressure 126/88 03/19/2024 11:13 AM TANK CLEANING SUPERVISOR Pulse 92 03/19/2024 11:13 AM TANK CLEANING SUPERVISOR Temperature 36.3 C (97.4 F) 03/19/2024 11:13 AM TANK CLEANING SUPERVISOR Respiratory Rate 16 2023 1:15 PM CDT Oxygen Saturation 96% 03/19/2024 11:13 AM TANK CLEANING SUPERVISOR Inhaled Oxygen Concentration - - Weight 141.1 kg (311 lb) 03/19/2024 11:13 AM TANK CLEANING SUPERVISOR Height 165.1 cm (5' 5) 2023 11:43 AM CDT Body Mass Index 51.75 2023 11:43 AM CDT Plan of Treatment Health Maintenance Due Date Last Done Comments Cervical Cancer Screening Pap Smear (Age 21 to 29) Every 3 Years 1994 Cervical Cancer Screening 1994 Annual Physical 1997 Hepatitis C 2012 PHQ-2 (Physician [place]) 03/21/2024 09/02/2023 COVID-19 Vaccine ( season) 2024 09/05/2020, 08/02/2020 DTaP, Tdap and Td Vaccines (2 - [...] patient's age to complete this topic Insurance [facility] Advance Directives * Full Code (Latest Code Status on File) Date Activated Date Inactivated Comments 12/04/2021 1:11 PM 12/07/2021 6:54 PM * Full Code Date Activated Date Inactivated Comments 12/03/2021 6:13 PM 12/04/2021 1:11 PM * Full Code Date Activated Date Inactivated Comments 12/01/2021 1:07 AM 12/03/2021 6:13 PM Care Teams Security Flex Utility Officer Relationship Specialty Start Date End Date Kwame Barragan MD [address] [place] [id number] PCP - General FAMILY PRACTICE 02/22/23 12/02/24
--- OUTSIDE RECORDS SUMMARY | 2024-11-27 17:04 | XMS_ITS | Clinical Summary ---
Author Organization [facility] Care Team Providers Care Stretching Machine Operator Name Role Phone Unavailable Primary Care Provider Unavailabl e Social History Tobacco Use Types Packs/Day Years Used Date Smoking Tobacco: Never Assessed Comments Unknown Sex and Gender Information Value Date Recorded Sex Assigned at Not on file Legal Sex Female 11:46 AM INGOT STRIPPER Gender Identity Not on file Sexual Orientation Not on file Plan of Treatment Health Maintenance Due Date Last Done Comments Hepatitis C Virus (HCV) Screening 1994 SARS-COV-2 Immunization ( season) 2023 09/05/2020, 08/02/2020 Influenza Immunization (#1) 2024 12/22/2020 Respiratory Syncytial Virus (RSV) Immunization (Adult) (1 - 1-dose 75+ series) 2069 Hepatitis B Immunization Completed 996, 02/02/1995, 1994 DTaP/Tdap/Td Immunization Discontinued 2016, 05/21/1996, 06/22/1995, Additional history exists Meningococcal Immunization (ACWY) Aged Out 05/11/2016 No longer eligible based on patient's age to complete this topic TdaP Immunization Completed 05/11/2016 Human Papillomavirus (HPV) Immunization Completed 11/17/2016, 07/13/2016, 05/11/2016 Pneumococcal Immunization Combined Aged Out No longer eligible based on patient's age to complete this topic Rotavirus Immunization Aged Out No lo nger eligible based on patient's age to complete this topic
--- OUTSIDE RECORDS SUMMARY | 2024-11-27 17:04 | XMS_ITS | Encounter Summary ---
Author Organization [facility] Address [facility] [place] [address] Care Team Providers Care Beauty Specialist Name Role Phone Kwame Barragan MD Primary Care Provider [phone] Encounter Details Date Type Department Care Team (Late st Contact Info) Description 09/29/2023 MyChart Message Enc [facility] Multispec[facility]ty Care - [facility] [address], [address] [place] [id number] Margarita Ochoa MD [address] [place] [address] [phone] Prescription Question Social History Tobacco Use Types [...] Rule Out 03/19/2024 03/19/2024 03/19/2024 1:56 PM SR. PAYROLL MANAGER Assessment Noted Time PHQ-9 Depression Total Score: 0 09/02/19 2:45 PM CDT documented as of this encounter Care Teams Beauty Specialist Relationship Specialty Start Date End Date Kwame Barragan MD [address] [place] [address] PCP - General FAMILY PRACTICE 02/22/23 12/02/24 documented as of this encounter
[2024-11-27 18:46] LABS: OBXCEM ROM Plus Negative (Negative)
--- NOTE | 2024-12-10 07:44 | P.HP_ITS ---
H&P: HPI History of Present Illness Date/Time: 12/10/24 07:44 Chief Complaint: Term for repeat section Narrative: 29-year-old multiparous patient presents at 39 weeks gestation for repeat arnaud an section declined vaginal delivery and said previous section has been uncomplicated thus far Review of Systems Review of Systems: All systems reviewed & are unremarkable except as noted in HPI and below PMFSH Social History Social History Substance use: never Do You Feel Safe in your Home?: Yes Lack of Transportation: YES Lack of Food: Never True Current Housing: I Have Housing Concerned About Future Housing: YES Difficulty Paying Gas/Electric Bills: YES Difficulty Paying for Meds: YES Currently Unemployed: YES Education: High School Diploma/GED Difficulty w/ Childcare or Family Care: No Spiritual care concerns: No Meds Home Medications and Allergies Home Medications ?Medication ?Instructions ?Recorded ?Confirmed ?Type omeprazole 20 mg capsule,delayed 20 mg PO DAILY 11/29/24 History release vit no.95-ferrous 1 tablet PO DAILY 10/31/24 11/29/24 History fumarate 28 mg-folic acid 800 mcg tablet () Allergies Allergy/AdvReac Type Severity Reaction Status Date / Time amoxicillin Allergy Intermediate Hives Verified 11/29/24 14:45 Exam Const: General: cooperative, healthy appearing and comfortable Nutritional Appearance: average body habitus Orientation/consciousness: oriented to person, oriented to place and oriented to time Resp: Effort & Inspection: normal respiratory effort Cardio: Rate: regular rate Rhythm: regular rhythm Heart sounds: S1 normal heart sound present and S2 normal heart sound present GI: Inspection: normal to inspection (Gravid soft uterus) : External Female Exam: normal external appearance Speculum Exam - Vagina: normal appearance of the vagina Speculum Exam - Cervix: normal appearance of the cervix Bimanual exam- vagina & uterus: enlarged Assessment and Plan Assessment and plan (1) Term : Code(s): Z34.90 - Encounter for supervision of normal , unspecified, unspecified trimester Status: Acute (2) Previous section: Code(s): Z98.891 - History of uterine scar from previous surgery Status: Acute Plan Proceed with repeat low-transverse section
== END 2024-11-27 18:01 | disposition home or self-care (01) ==
LOC: ANHOBOP 16:02 → ANHOBPP 16:04
PROVIDERS: Visit Provider Obstetrics & Gynecology
DX: O42.90 Premature rupture of membranes, unspecified as to length of time between rupture and onset of labor, unspecified weeks of gestation (principal)
CPT/HCPCS: 59025; 76815; 84112

== ENCOUNTER 2024-12-10 13:54 | Outpatient (CLI) | payer SELFPAY ==
--- OUTSIDE RECORDS SUMMARY | 2024-12-10 14:18 | XMS_ITS | Encounter Summary ---
Author Organization [facility] Address [facility] [place] [address] Care Team Providers Care Lead Project Engineer Name Role Phone Efe Can MD Primary Care Provider [phone] None, Provider Primary Care Provider Kwame Barnhart MD Primary Care Provider [phone] More VIIBill MD Primary Care Prov ider Encounter Details Date Type Department Care Team (Late st Contact Info) Description 12/09/2021 Hospital Follow-up Call [facility] [place] [address] Melissa Martines, RN Social History Tobacco Use Types Packs/Day [...] Assessment Author Status No 12/01/2021 12:27 AM KARLAT Yanet Cano RN Active documented as of [...] Rule Out 03/19/2024 03/19/2024 03/19/2024 1:56 PM ARC WELDER documented as of this encounter Care Teams Lead Project Engineer Relationship Specialty Start Date End Date Efe Can MD [address] [place] [address] PCP - General OBGYN 08/03/21 05/21/22 None, Provider, MD PCP - General UNKNOWN PHYSICIAN SPECIALTY 05/22/22 02/21/23 Kwame Barragan MD [address] [place] [phone] PCP - General FAMILY PRACTICE 02/22/23 12/02/24 Bill Craig MD [address] [place] [address] [phone] PCP - General FAMILY PRACTICE 12/03/24 documented as of this encounter
--- OUTSIDE RECORDS SUMMARY | 2024-12-10 14:18 | XMS_ITS | Clinical Summary ---
Author Organization [facility] at the [facility] Office Center Address [address] [place] [address] Care Team Providers Care Tool Room Gear Machine Operator Name Role Phone Kwame Barragan MD Primary Care Provider [phone] Allergies Active Allergy Reactions Criticality Noted Date [...] on file Legal Sex Female 8:58 PM CLAM DREDGER Gender Identity Female 05/01/2022 10:35 AM CLAM DREDGER Sexual Orientation Straight 05/01/2022 10 :35 AM CLAM DREDGER Obstetrics History Last Filed Vital Signs Vital [...] 05/03/2022, 10/26/19 19 Covid-19 Vaccine ( season) 2024 09/05/2020, 08/02/2020 Influenza Vaccine (#1) 2024 01/07/2022, 2020 DTaP/Tdap/Td Vaccine (6 - Td or Tdap) 05/11/2026 05/11/2016, 05/21/1996, 06/22/1995, Additional history exists Hepatitis B Screening Completed 06/22/1995 , 02/02/1995, 1994 HPV Vaccines Completed 11/17/2016, 06/20, 05/11/2016 Varicella Vaccines Completed 01/19/2021, 12/22/2020 Pneumococcal vaccine <65 Aged Out No longer eligible based on patient's age to complete this topic Insurance [facility] [place] [address] [facility] [place] [address] [facility] Care Teams Tool Room Gear Machine Operator Relationship Specialty Start Date End Date Kwame Barragan MD PCP - General Family Practice 03/25/23
--- OUTSIDE RECORDS SUMMARY | 2024-12-10 14:18 | XMS_ITS | Encounter Summary ---
Author Organization [facility] Address [facility] [place] [address] Care Team Providers Care Card Services Specialist Name Role Phone Kwame Barragan MD Primary Care Provider [phone] Bill Craig MD Primary Care Prov ider Encounter Details Date Type Department Care Team (Late st Contact Info) Description 09/29/2023 MyChart Message Enc [facility] Multispecialty Care - [facility] [address] [facility], [address] [place] [address] Margarita Ochoa MD [address] [place], [place] [id number] Prescription Question Social History Tobacco Use Types [...] 12:27 AM KARLAT Yanet Cano RN Active * Because of a physical, mental, or emotional condition, do you have difficulty doing errands alone such as visiting a doctor's office or shopping? Answer Date of Assessment Author Status No 12/01/2021 12:27 AM Yanet Kirkland RN Active documented as of this encounter Mental Status * Because of a physical, mental, or emotional condition, do you have serious difficulty concentrating, remembering, or making decisions? Answer Entry Date Author Status No 12/01/2021 12:27 AM Yanet Kirkland RN Active documented in this encounter Plan of Treatment Not on file documented as of this encounter Visit Diagnoses Not on filedocumented in this encounter Additional Health Concerns Infection Onset Date Last Indicated Resolved Time COVID-19 Rule Out 03/19/2024 03/19/2024 03/19/2024 1:56 PM CARDIAC REHAB NURSE Assessment Noted Time PHQ-9 Depression Total Score: 0 09/02/19 24 2:45 PM CDT documented as of this encounter Care Teams Card Services Specialist Relationship Specialty Start Date End Date Kwame Barragan MD [address] [place] [address] [phone] PCP - General FAMILY PRACTICE 02/22/23 12/02/24 More Bill AVALOS MD [address] [place] [address] [phone] PCP - General FAMILY PRACTICE 12/03/24 documented as of this encounter
--- OUTSIDE RECORDS SUMMARY | 2024-12-10 14:18 | XMS_ITS | Clinical Summary ---
Author Organization [facility] Address [facility] [place] [address] Care Team Providers Care Mail Messenger Contractor Name Role Phone Bill Craig MD Primary Care Prov ider Allergies Active Allergy Reactions Criticality Noted Date [...] 12/07/2021 Failure to progress in labor ([facility]) Delivery of by section ([facility]) 12/07/2021 ([facility]) 12/01/2021 Class 3 severe obesity with body mass index (BMI) of 50.0 to 59.9 in adult 12/01/2021 Resolved Problems Problem Noted Date Diagnosed Date Resolved Date Gestational diabetes ([facility]) 12/01/2021 02/22/2023 Subluxation of symphysis pub is during in third trimester ([facility]) 09/08/2021 0 09/08/2021 Pelvic pain affecting ([facility]) 09/08/2021 12/07/2021 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 [...] Comments Blood Pressure 126/88 03/19/2024 11:13 AM HORSE RACE TIMER Pulse 92 03/19/2024 11:13 AM HORSE RACE TIMER Temperature 36.3 C (97.4 F) 03/19/2024 11:13 AM HORSE RACE TIMER Respiratory Rate 16 2023 1:15 PM CDT Oxygen Saturation 96% 03/19/2024 11:13 AM HORSE RACE TIMER Inhaled Oxygen Concentration - - Weight 141.1 kg (311 lb) 03/19/2024 11:13 AM HORSE RACE TIMER Height 165.1 cm (5' 5) 2023 11:43 AM CDT Body Mass Index 51.75 2023 11:43 AM CDT Plan of Treatment Health Maintenance Due Date Last Done Comments Cervical Cancer Screening Pap Smear (Age 30 to 64) Every 3 Years 1994 Annual Physical 1997 Hepatitis C 2012 PHQ-2 (Physician [place]) 03/21/2024 09/02/2023 COVID-19 Vaccine ( season) 2024 09/05/2020, 08/02/2020 Cervical Cancer Screening Pap with HPV Testing (Age 30 to 64) Every 5 Years 2024 Cervical Cancer Screening with HPV 2024 DTaP, Tdap and Td Vaccines (2 - [...] patient's age to complete this topic Insurance [employer] Advance Directives * Full Code (Latest Code Status on File) Date Activated Date Inactivated Comments 12/04/2021 1:11 PM 12/07/2021 6:54 PM * Full Code Date Activated Date Inactivated Comments 12/03/2021 6:13 PM 12/04/2021 1:11 PM * Full Code Date Activated Date Inactivated Comments 12/01/2021 1:07 AM 12/03/2021 6:13 PM Care Teams Mail Messenger Contractor Relationship Specialty Start Date End Date Bill Craig MD [address] [place] [phone] PCP - General FAMILY PRACTICE 12/03/24
--- OUTSIDE RECORDS SUMMARY | 2024-12-10 14:18 | XMS_ITS | Clinical Summary ---
Author Organization [facility] Care Team Providers Care Beverage Steward Name Role Phone Unavailable Primary Care Provider Unavailabl e Social History Tobacco Use Types Packs/Day Years Used Date Smoking Tobacco: Never Assessed Comments Unknown Sex and Gender Information Value Date Recorded Sex Assigned at Not on file Legal Sex Female 11:46 AM BAT CARRIER Gender Identity Not on file Sexual Orientation [...]
[2024-12-10 15:10] LABS: Hematocrit 34.1 % (37.0-47.0); Hemoglobin 10.7 g/dL (12.0-15.0); Immature Granulocyte Percent A 0.6 % (0-0.5); Lymphocytes Absolute Auto 2.23 K/mm3 (0.9-3.2); Mean Corpuscular HGB Conc 31.4 g/dl (32-36); Mean Corpuscular Hemoglobin 27.0 pg (26-34); Mean Corpuscular Volume 85.9 fl (80-100); Nucleated Red Blood Cells Absolute Auto 0.000 K/mm3 (0.0-0.012); Nucleated Red Blood Cells Perc 0.0 % (0.0-0.2); Platelet Count Result 289 k/mm3 (150-375); Red Blood Count 3.97 M/mm3 (4.2-5.4); White Blood Count 12.0 K/mm3 (4.5-10.0)
[2024-12-10 15:49] LABS: Syphilis IgG/IgM Antibody Non-Reactive (Nonreactive)
[2024-12-10 15:58] LABS: HIV 1/2 Ab P24 Ag Result Negative (Negative)
== END 2024-12-10 13:55 | disposition home or self-care (01) ==
PROVIDERS: Visit Provider Obstetrics & Gynecology
DX: Z34.93 Encounter for supervision of normal pregnancy, unspecified, third trimester (principal); Z3A.00 Weeks of gestation of pregnancy not specified
CPT/HCPCS: 36415; 85025; 86593; 86703; 86850; 86900; 86901; G0432

== ENCOUNTER 2024-12-12 05:28 | Inpatient (IN) | payer OTHER, SELFPAY ==
--- NOTE | 2024-12-10 07:48 | HP_ITS ---
This report was moved to the correct visit on 12/17/2024. The original report was signed by Kale Nazario MD on 12/10/24 0748. H&P: HPI History of Present Illness Date/Time: 12/10/24 07:44 Chief Complaint: Term for repeat section Narrative: 29-year-old multiparous patient presents at 39 weeks gestation for repeat section declined vaginal delivery and said previous section has been uncomplicated thus far Review of Systems Review of Systems: All systems reviewed & are unremarkable except as noted in HPI and below PMFSH Social History Social History Substance use: never Do You Feel Safe in your Home?: Yes Lack of Transportation: YES Lack of Food: Never True Current Housing: I Have Housing Concerned About Future Housing: YES Difficulty Paying Gas/Electric Bills: YES Difficulty Paying for Meds: YES Currently Unemployed: YES Education: High School Diploma/GED Difficulty w/ Childcare or Family Care: No Spiritual care concerns: No Meds Home Medications and Allergies Home Medications ?Medication ?Instructions ?Recorded ?Confirmed ?Type omeprazole 20 mg capsule,delayed 20 mg PO DAILY 10/31/24 11/29/24 History release vit no.95-ferrous 1 tablet PO DAILY 10/31/24 11/29/24 Hist ory fumarate 28 mg-folic acid 800 mcg tablet () Allergies Allergy/AdvReac Type Severity Reaction Status Date / Time amoxicillin Allergy Intermediate Hives Verified 11/29/24 14:45 Exam Const: General: cooperative, healthy appearing and comfortable Nutritional Appearance: average body habitus Orientation/consciousness: oriented to person, oriented to place and oriented to time Resp: Effort & Inspection: normal respiratory effort Cardio: Rate: regular rate Rhythm: regular rhythm Heart sounds: S1 normal heart sound present and S2 normal heart sound present GI: Inspection: normal to inspection (Gravid soft uterus) : External Female Exam: normal external appearance Speculum Exam - Vagina: normal appearance of the vagina Speculum Exam - Cervix: normal appearance of the cervix Bimanual exam- vagina & uterus: enlarged Assessment and Plan Assessment and plan (1) Term : Code(s): Z34.90 - Encounter for supervision of normal , unspecified, unspecified trimester Status: Acute (2) Previous section: Code(s): Z98.891 - History of uterine scar from previous surgery Status: Acute Plan Proceed with repeat low-transverse section Please be advised this is a medical document. It is intended for [id number] communication. It is written in medical language and may contain unfamiliar abbreviations or verbiage. Medical documents are intended to carry relevant information, facts as evident, and the clinical opinion of the practitioner at the time of the encounter. This report may have been done utilizing a voice recognition system. Attempts have been made to correct errors. However, there may be uncorrected grammatical, spelling, and recognition errors present. The file time of this note does not necessarily represent the time the patient was seen. Report Initialized date/time: Kale Nazario MD 12/10/24747 Electronically signed by: Kale Nazario MD 12/10/24747
[2024-12-12] VITALS (69 sets, daily range): BP systolic 107–160; BP diastolic 53–114; PULSE 55–90; RESP 14–20; TEMP 36.3–37.6; O2SAT 96–100; BMI 54.0
--- NOTE | 2024-12-12 06:18 | LDADM ---
This patient, Severino Rodriguez, was admitted to Labor/Delivery/Recovery 120 on 12/12/24 at 05:28. Plans for labor, pain management and were discussed with patient. Patient/family oriented to hospital policies and general routines including ID bracelet, bed and alarms, visiting hours, pain management, procedures, bathroom and other care routines, personal items, smoking policy, room service/diet and guest tray routines, security routines, and visiting hours. Patient/Family are encouraged to report perceived risks to care and to ask questions if they do not understand what they are told or what they should do. See OBIX for further documentation.
[2024-12-12] MEDS: ACETAMINOPHEN 500 MG TABLET 1000 MG PO ×3 (06:20→22:05)
[2024-12-12] MEDS: LACTATED RINGERS 1,000 ML 125 ML IV CONT ×3 (06:22→07:57)
--- NOTE | 2024-12-12 06:38 | WPDHPUPDATE1 ---
History and Physical Update Update Date/Time: 12/12/24 06:38 History and Physical has been reviewed, including an updated exam of the patient. There are NO changes in the patient's condition. Risks, benefits, and alternatives have been discussed and questions answered. Patient agrees to proceed with procedure.
[2024-12-12] MEDS: FAMOTIDINE 20 MG/2 ML VIAL IV PUSH (06:59)
[2024-12-12] MEDS: ONDANSETRON INJ 4 MG/2 ML VIAL IV PUSH (06:59)
--- NOTE | 2024-12-12 07:26 | WPDANESEPPF ---
Anes - Initial Pre Proc Eval Procedure: Operation Date: 12/12/24 07:30 Proposed Procedures p Repeat Section - Kale Guajardo MD Date/Time: 12/12/24 07:26 Surgeon: Kale Guajardo MD Pre Op Diagnosis: S/C/S Patient Data Age: 29 Gender: F Height: 1.65 m Weight: 147.2 kg Last Vital Signs Temp 99.6 F 12/12/24 06:55 Pulse 82 12/12/24 07:02 BP 149/77 H 12/12/24 07:02 Pulse Ox 97 12/12/24 07:14 Allergies Allergy/AdvReac Type Severity Reaction Status Date / Time amoxicillin Allergy Intermediate Hives Verified 12/12/24 06:27 Home Medications ?Medication ?Instructions ?Recorded ?Confirmed ?Type omeprazole 20 mg capsule,delayed 20 mg PO DAILY 10/31/24 12/12/24 History release vit no.95-ferrous 1 tablet PO DAILY 10/31/24 12/12/24 History fumarate 28 mg-folic acid 800 mcg tablet () hydrocodone 5 mg-acetaminophen 325 1 tablet PO Q4H PRN pain #20 tabs 12/12/24 Rx mg tablet Patient hx anesthesia problems: none Family hx anesthesia problems: none Results Review: All pre-operative results and documents have been reviewed as part of the pre-operative evaluation. [facility] Social History Social History Smoking status: Never smoker Substance use: never Do You Feel Safe in your Home?: Yes Lack of Transportation: No Lack of Food: Never True Current Housing: I Have Housing Concerned About Future Housing: No Difficulty Paying Gas/Electric Bills: No Difficulty Paying for Meds: No Currently Unemployed: No Education: High School Diploma/GED Difficulty w/ Childcare or Family Care: No Spiritual care concerns: No Anes - Eval Final PreProcedure Day of Procedure 12/12/24 07:26 Patient weight: morbidly obese Lungs: normal air movement Airway: Mallampati scale class II Neurological: alert and oriented Last oral intake: >/= 8 hours ASA classification: III Emergent: no Anesthetic plan: proceed Anesthesia type and monitoring: regional spinal and standard monitoring Results Review: All pre-operative results and documents have been reviewed as part of the pre-operative evaluation. BMI 54, plts 289. Informed Consent: The patient's anesthetic plan and its attendant risks and benefits were discussed with the patient/family/POA. Questions were solicited and answers provided to the satisfaction of the patient/family/POA.
[2024-12-12] MEDS: ceFAZolin 3 GM/D5W 100 ML 100 ML IVPB (07:27)
--- NOTE | 2024-12-12 08:25 | W.PM.OBCSD ---
OB - Delivery Note Procedure Delivery date: 12/12/24 Pre-op diagnosis: Previous Delivery Post-op Diagnosis: Same Induction method: None Delivery monitor: External FHT Prior to decision for section, ACOG/SMFM labor guidelines were considered and discussed with the patient and staff. Decision made to proceed with the section.: Yes Procedure Performed: Repeat Surgeon: Kale Guajardo MD Anesthesia type: Spinal Description of Procedure/Findings: The patient is prepped draped in normal sterile fashion placed in the supine position. Under excellent spinal anesthetic the abdomen was entered through the previous is Pfannenstiel incision progressive layers to the fascia. Fascia was incised in the upper not fashion bilaterally. Underlying muscles sharply dissected. Parietal peritoneum by Gisela clamps and by sharp dissection. This was carried superiorly and inferiorly the dome bladder bladder blade placed. Bladder blade returned. Bladder blade returned after a bladder flap was formed. Low-transverse incision made the head delivered in the VALENTE position. Anterior posterior shoulder delivered spontaneously. Cord clamped x2 and cut infant passed off the table given Apgars of 8 [id number]. Cord blood was drawn. Placenta delivered intact manually. Uterus delivered from the abdomen wrapped in a moist towel. After assuring no membranes or debris remained in the uterus, uterus was closed with continuous running locking 0 Vicryl from lateral edge to lateral edge. Second imbricating running locking 0 Vicryl was performed from lateral edge to lateral edge hemostasis was assured. Ovaries and tubes appeared within normal limits in the IMELDA stasis was noted of the hysterotomy incision. The uterus returned to the abdomen. The laps removed and accounted for. The fascia closed with continuous running 0 Vicryl from lateral edge to lateral edge. Irrigation subcutaneous layer and the skin closed with 4 Monocryl and glue. QBL was 220cc. All sponge, needle, instrument counts were correct. There were immediate complications. Patient went to recovery in satisfactory condition Estimated Blood Loss: 220 Drains: No Packing: No Pathology: None sent Complications: No immediate complications Condition: Stable Disposition: PACU [place] Baby Date of : 12/12/24 Time of : 08:00 Gestational Age by Date: 38 gender: Male Weight (pounds): 8 Weight (ounces): 2 presentation: vertex position: Left Occiput Anterior Placenta delivery description: Manual Removal Cord Vessel Description: 3 Vessels score one minute: 8 score five minutes: 9
--- NOTE | 2024-12-12 08:28 | PM.DS ---
DS: Admitting Diagnosis Discharge Date 12/14/2024 Admitting Diagnosis Term /previous section DS: Discharge Diagnosis Discharge Diagnosis (1) Term : Code(s): Z34.90 - Encounter for supervision of normal , unspecified, unspecified trimester Status: Acute (2) Previous section: Code(s): Z98.891 - History of uterine scar from previous surgery Status: Acute DS: Summary Hospital Course Reason for hospitalization: Patient was admitted on 12/12/2024 for repeat section Hospital Course: Patient's hospital course unremarkable. She remained afebrile. She was up, voiding without difficulty, eating regular diet, ambulating, and generally without complaints. Time Spent with Patient Time attestation: Total time spent providing and/or coordinating discharge services: Exam Const: General: cooperative, healthy appearing and comfortable Orientation/consciousness: oriented to person, oriented to place and oriented to time Resp: Effort & Inspection: normal respiratory effort Cardio: Rate: regular rate Rhythm: regular rhythm Heart sounds: S1 normal heart sound present and S2 normal heart sound present GI: Inspection: normal to inspection and incision (Wound is clean dry and intact) Discharge Plan Discharge Attending physician on discharge: Kale Nazario Discharging Clinician: Kale Nazario Patient Disposition: Home Activity: may shower, no straining and pelvic rest Diet: heart healthy Wound Care Instructions: follow printed instructions Patient Instructions: Antibiotic Form Patient Language: Ivorian Stand Alone Forms: General Discharge Information Follow-up/Referrals: Kale Nazario MD [Physician, SUSPECT ARTIST SUPERVISOR] Discharge Medications: New hydrocodone-acetaminophen 5-325 mg tablet 1 tablet PO Q4H PRN (Reason: pain) Qty: 20 0RF Continued omeprazole 20 mg capsule,delayed release(DR/EC) 20 mg PO DAILY PNV no.95-ferrous fumarate-FA [] 28 mg iron- 800 mcg tablet 1 tablet PO DAILY Date of admission: 12/12/24 05:28 Primary Care Provider: PHYSICIAN NOT ON STAFF,NONSTAFF Admitting Provider: Kale Nazario Attending physician on admission: Kale Nazario Condition: Stable
[2024-12-12] MEDS: OXYTOCIN 30 UNITS/NS 500 ML 30 UNITS/500 ML BAG 125 UNITS IV CONT (09:18)
--- NOTE | 2024-12-12 10:41 | OBPPTRN ---
Patient transferred to post room #285 via stretcher. Support person present. Oriented to unit, room, information board, rooming in, admission packet and security measures. Patient verbalizes understanding.
--- NOTE | 2024-12-12 11:32 | PC.NURSE ---
On 12/12/24, the student, Yuliet Hanson, provided care and completed [employer] documentation on this patient. I have reviewed the student's documentation and agree with the findings. Primary RN was notified of pt's high BP.
[2024-12-12] MEDS: KETOROLAC 15 MG/ML VIAL (*BKC) IV PUSH ×2 (13:11→22:05)
[2024-12-12] MEDS: SIMETHICONE 80 MG TAB.CHEW PO ×2 (13:12→17:28)
[2024-12-12] MEDS: DEXTROSE 5%/0.45% SOD CHL 1,000 ML 125 ML IV CONT ×2 (13:46→22:40)
[2024-12-12] MEDS: DOCUSATE SODIUM 100 MG CAPSULE PO (17:28)
[2024-12-12] MEDS: LABETALOL HCL 100 MG TABLET 200 MG PO (22:20)
--- NOTE | 2024-12-12 22:30 | PC.NURSE ---
2200 - This RN entered the room to assess the patient. RN noted small amount of blood from incision. Blood pressure was taken 149/93. This RN waited 5 minutes and rechecked and got 152/80. Patient states she has had some high pressures during . 2210- This RN contacted Dr. Pili Guajardo to relay the above information. Dr. Pili Guajardo ordered for a pressure dressing to be placed on the incision and 200 mg of labetalol to be given. 2220- This RN and Emma Rodgers RN entered the room and placed a mepilex border dressing on the incision. Patient was given labetalol.
[2024-12-13] MEDS: KETOROLAC 15 MG/ML VIAL (*BKC) IV PUSH (04:20)
[2024-12-13] MEDS: ACETAMINOPHEN 500 MG TABLET 1000 MG PO ×4 (04:20→22:01)
[2024-12-13 04:49] LABS: Hematocrit 27.5 % (37.0-47.0); Hemoglobin 8.4 g/dL (12.0-15.0); Immature Granulocyte Percent A 0.5 % (0-0.5); Lymphocytes Absolute Auto 2.89 K/mm3 (0.9-3.2); Mean Corpuscular HGB Conc 30.5 g/dl (32-36); Mean Corpuscular Hemoglobin 26.8 pg (26-34); Mean Corpuscular Volume 87.9 fl (80-100); Nucleated Red Blood Cells Absolute Auto 0.000 K/mm3 (0.0-0.012); Nucleated Red Blood Cells Perc 0.0 % (0.0-0.2); Platelet Count Result 232 k/mm3 (150-375); Red Blood Count 3.13 M/mm3 (4.2-5.4); White Blood Count 11.9 K/mm3 (4.5-10.0)
--- NOTE | 2024-12-13 06:56 | P.PNOB_ITS ---
OB - PN: Subj Subjective Date/time seen: 12/13/24 06:56 Patient comments: no complaints, pain well controlled, tolerating diet and flatus present [place] baby status: doing well OB - PN: Obj Data Labs 12/13/24 04:00 Labs: Laboratory Results - last 24 hr 12/13/24 04:00 WBC 11.9 H RBC 3.13 L Hgb 8.4 L Hct 27.5 L MCV 87.9 MCH 26.8 MCHC 30.5 L RDW 15.4 H Plt Count 232 MPV 9.7 Immature Gran % (Auto) 0.5 Neut % (Auto) 68.2 Lymph % (Auto) 24.2 [place] % (Auto) 5.9 Eos % (Auto) 1.0 Baso % (Auto) 0.2 Lymph # (Auto) 2.89 [place] # (Auto) 0.7 H Eos # (Auto) 0.1 Baso # (Auto) 0.0 Abs Immat Gran (auto) 0.06 H Absolute Neuts (auto) 8.1 H Absolute Nucleated RBC 0.000 Nucleated RBC % 0.0 OB - PN A/P Assessment and Plan (1) Term : Code(s): Z34.90 - Encounter for supervision of normal , unspecified, unspecified trimester Status: Acute (2) Previous section: Code(s): Z98.891 - History of uterine scar from previous surgery Status: Acute Plan routine care Time Spent With Patient Time: Total time spent is greater than 50% in coordination of care (as documented) at patient's floor/unit and/or counseling patient: Review of Systems 2 Review of Systems: All systems reviewed & are unremarkable except as noted in HPI and below Exam 2 Const: General: cooperative, healthy appearing and comfortable O rientation/consciousness: oriented to person, oriented to place and oriented to time Resp: Effort & Inspection: normal respiratory effort Cardio: Rate: regular rate Rhythm: regular rhythm Heart sounds: S1 normal heart sound present and S2 normal heart sound present GI: Inspection: normal to inspection and incision (Wound is clean dry and intact)
[2024-12-13 07:35] VITALS: BP 129/83; PULSE 75; RESP 16; TEMP 37.1; O2SAT 98
--- NOTE | 2024-12-13 08:11 | PHAR ---
HOME MED: OMEPRAZOLE [address] TABLETS; IN ORIGINAL OTC BOTTLE; THREE PILLS LEFT IN THE BOTTLE. VERIFIED BY PHARMACY.
[2024-12-13] MEDS: MULTIVIT/MIN/PREN/FOL AC/IRON TABLET 1 TAB PO (08:47)
[2024-12-13] MEDS: SIMETHICONE 80 MG TAB.CHEW PO ×3 (08:47→16:10)
[2024-12-13] MEDS: DOCUSATE SODIUM 100 MG CAPSULE PO ×2 (08:48→16:10)
[2024-12-13] MEDS: OMEPRAZOLE 20 MG 1 EACH BY MOUTH (08:49)
[2024-12-13] MEDS: IBUPROFEN 600 MG TABLET PO ×3 (10:10→22:01)
[2024-12-13 11:53] VITALS: BP 143/67; PULSE 78; RESP 16; TEMP 37.3; O2SAT 97
--- NOTE | 2024-12-13 17:02 | WPDANLDPN2 ---
Anes-Prog Note L&D Date/Time: 12/13/24 17:02 Neuro status: Neuro function grossly intact. Cardiovascular status: normal Respiratory status: normal Airway patency: baseline Mental status: baseline Post-Op hydration status: normal Vital Signs: Last Vital Signs Temp 37.3 C 12/13/24 11:53 Pulse 78 12/13/24 11:53 Resp 16 12/13/24 11:53 BP 143/67 H 12/13/24 11:53 Pulse Ox 97 12/13/24 11:53 O2 Del Method Room Air 12/13/24 08:30 Pain score (VAS): 0 I/O: Intake & Output 12/13/24 12/13/24 12/13/24 07:59 15:59 23:59 Intake Total 1650 0 Output Total 1100 Balance 550 0 Post-procedural complaints: none Patient feedback: Patient satisfied with anesthetic care.
--- NOTE | 2024-12-13 17:02 | WPDANLDNPN2 ---
Anes-Prog Note L&D-Neuraxial Date/Time: 12/13/24 17:02 Patient feedback: Patient satisfied with post-operative pain management.
[2024-12-13 19:08] VITALS: BP 138/85; PULSE 91; RESP 16; TEMP 36.2; O2SAT 100
[2024-12-13] MEDS: LIDOCAINE 5% PATCH 1 PATCH TRANSDERM (22:06)
[2024-12-14] MEDS: IBUPROFEN 600 MG TABLET PO ×2 (04:00→10:00)
[2024-12-14] MEDS: ACETAMINOPHEN 500 MG TABLET 1000 MG PO ×2 (04:00→10:00)
--- NOTE | 2024-12-14 07:15 | P.PNOB_ITS ---
OB - PN: Subj Subjective Date/time seen: 12/14/24 07:15 Patient comments: no complaints, pain well controlled, tolerating diet and flatus present baby status: doing well OB - PN: Obj Data Labs 12/13/24 04:00 OB - PN A/P Assessment and Plan (1) Term : Code(s): Z34.90 - Encounter for supervision of normal , unspecified, unspecified trimester Status: Acute (2) Previous section: Code(s): Z98.891 - History of uterine scar from previous surgery Status: Acute Plan home Time Spent With Patient Time: Total time spent is greater than 50% in coordination of care (as documented) at patient's floor/unit and/or counseling patient: Review of Systems 2 Review of Systems: All systems reviewed & are unremarkable except as noted in HPI and below Exam 2 Const: General: cooperative, healthy appearing and comfortable Nutritional Appearance: overweight Orientation/consciousness: oriented to person, oriented to place and oriented to time HENMT: Head: normal to inspection Resp: Effort & Inspection: normal respiratory effort Cardio: Rate: regular rate Rhythm: regular rhythm Heart sounds: S1 normal heart sound present and S2 normal heart sound present GI: Inspection: normal to inspection and incision (cdi)
[2024-12-14 08:05] VITALS: BP 148/92; PULSE 66; RESP 18; TEMP 37.1; O2SAT 99
[2024-12-14] MEDS: oxyCODONE HCL (*CRX) 5 MG TAB IR PO ×2 (08:37)
[2024-12-14] MEDS: MULTIVIT/MIN/PREN/FOL AC/IRON TABLET 1 TAB PO (08:37)
[2024-12-14] MEDS: DOCUSATE SODIUM 100 MG CAPSULE PO (08:37)
[2024-12-14] MEDS: SIMETHICONE 80 MG TAB.CHEW PO ×2 (08:37→11:06)
[2024-12-14] MEDS: OMEPRAZOLE 20 MG 1 EACH BY MOUTH (08:43)
[2024-12-14 10:10] VITALS: BP 159/94; PULSE 90
[2024-12-14 10:15] VITALS: BP 148/87; PULSE 94
[2024-12-14 11:06] VITALS: PULSE 94
[2024-12-14] MEDS: LABETALOL HCL 100 MG TABLET 200 MG PO (11:06)
[2024-12-14 12:15] VITALS: BP 153/92; PULSE 86
[2024-12-15 13:09] VITALS: BP 148/80; PULSE 85; RESP 18; TEMP 36.9; O2SAT 100
== END 2024-12-14 15:27 | disposition home or self-care (01) | DRG 788 ==
LOC: ANHLDR 06:39 → ANHOB2 10:42
PROVIDERS: Admitting Provider Obstetrics & Gynecology; Visit Provider Obstetrics & Gynecology
PROC: 10907ZC Drainage of Amniotic Fluid, Therapeutic from Products of Conception, Via Natural or Artificial Opening (ICD-10-PCS; CPT 59514; principal; 2024-12-12 07:30)
DX: O34.211 Maternal care for low transverse scar from previous cesarean delivery (principal); Z3A.39 39 weeks gestation of pregnancy; Z37.0 Single live birth; O99.214 Obesity complicating childbirth; E66.01 Morbid (severe) obesity due to excess calories
CPT/HCPCS: 36415; 85025; A9270; J0690; J1885; J2274; J2371; J2405; J2590; J7120

== ENCOUNTER 2025-02-11 16:56 | Emergency (ER) | payer OTHER, SELFPAY ==
[2025-02-11 17:05] VITALS: BP 146/79; PULSE 102; RESP 20; TEMP 36.5; O2SAT 98
--- NOTE | 2025-02-11 17:23 | ED.URI ---
HPI - URI/Sore Throat General Chief Complaint: Upper Respiratory Infection Stated Complaint: URI Time Seen by Provider: 02/11/25 17:17 Source: patient and RN notes reviewed Mode of arrival: ambulatory Limitations: no limitations History of Present Illness HPI Narrative: 29-year-old female patient presents today with a 3 day history of cough, congestion, sore throat. Denies fever or shortness of breath. She currently rates her pain 8/10 and has tried Sudafed PE, DayQuil, and NyQuil without much improvement. at home with similar symptoms. Related Data Home Medications ?Medication ?Instructions ?Recorded ?Confirmed ?Last Taken ?Type omeprazole 20 mg capsule,delayed 20 mg PO DAILY 10/31/24 12/12/24 12/11/24 10:30 History release vit no.95-ferrous 1 tablet PO DAILY 10/31/24 12/12/24 12/11/24 10:30 History fumarate 28 mg-folic acid 800 mcg tablet () lisinopril 10 mg tablet mg 02/11/25 Unknown History Allergies Allergy/AdvReac Type Severity Reaction Status Date / Time amoxicillin Allergy Intermediate Hives Verified 12/12/24 06:27 [facility] Social History Social History (Reviewed 02/11/25 @ 18:02 by Lyric Grant, CURING PRESS MAINTAINER, CUSTOMER SALES SERVICE MANAGER) Smoking status: Never smoker Substance use: never Do You Feel Safe in your Home?: Yes Lack of Transportation: No Lack of Food: Never True Current Housing: I Have Housing Concerned About Future Housing: No Difficulty Paying Gas/Electric Bills: No Difficulty Paying for Meds: No Currently Unemployed: No Education: High School Diploma/GED Difficulty w/ Childcare or Family Care: No Spiritual care concerns: No Comments At time of signature, I have reviewed and agree with nursing past medical, surgical, social and family history unless otherwise noted. Please see nursing chart for further information. There is no relevant family history pertinent to the presenting complaint Exam Narrative: GENERAL: Well-appearing, well-nourished, and in no acute distress. HEAD: Normocephalic, atraumatic. EYES: EOMI. No redness or drainage. Conjunctivae normal. ENT: Mucous membranes pink and moist. Nares mildly congested. No rhinorrhea. TMs normal bilaterally. Throat normal. Uvula midline. NECK: Normal AROM. Supple. No lymphadenopathy. CHEST: No respiratory distress. Clear to auscultation. HEART: Regular rate and rhythm. No murmur appreciated. EXTREMITIES: Normal range of motion. No edema. SKIN: Warm, dry, no rash. Capillary refill normal. Normal skin turgor. NEURO: No focal deficits. Alert and oriented x3. Gait steady. PSYCH: Normal affect. No signs of depression or anxiety. Course Course Level of Care: Express Care Visit Vital Signs Vital signs: Vital Signs Temperature 97.7 F 02/11/25 17:05 Pulse Rate 102 H 02/11/25 17:05 Respiratory Rate 20 02/11/25 17:05 Blood Pressure 146/79 H 02/11/25 17:05 Pulse Oximetry 98 02/11/25 17:05 Oxygen Delivery Room Air 02/11/25 17:05 Temperature 97.7 F 02/11/25 17:05 Pulse Rate 102 H 02/11/25 17:05 Respiratory Rate 20 02/11/25 17:05 Blood Pressure 146/79 H 02/11/25 17:05 Pulse Oximetry 98 02/11/25 17:05 Oxygen Delivery Room Air 02/11/25 17:05 Reviewed MDM - URI/Sore Throat MDM Narrative Medical decision making narrative: 29-year-old female patient presents today with a 3 day history of cough, congestion, sore throat. Denies fever or shortness of breath. She currently rates her pain 8/10 and has tried Sudafed PE, DayQuil, and NyQuil without much improvement. at home with similar symptoms. Upon exam, patient has some mild nasal congestion but otherwise normal physical exam. Symptoms likely viral in etiology. Discussed fawy-lod-zsugozz medication use and duration of illness. No prescription medications indicated at this time. Anticipatory guidance given. Patient agrees with plan. Vital signs stable. Anticipatory guidance given. ED precautions given Differential Diagnosis Differential diagnosis: Likely upper respiratory infection, sinusitis, viral infection, pharyngitis and other (Pneumonia) Critical Care Time Critical Care Time Critical Care Time: No Discharge Plan Discharge Clinical Impression: Upper respiratory infection Qualifiers: URI type: unspecified URI Qualified Code(s): J06.9 - Acute upper respiratory infection, unspecified Patient Disposition: Home Condition: Stable Instructions: Upper Respiratory Infection (DC) Additional Instructions: Your symptoms are likely due to a viral illness, which is not treated with antibiotics. Virus symptoms can last for up to 7-10days. Take Tylenol or ibuprofen for pain or fever. Rest and stay hydrated. Follow up with your PCP in [] days if symptoms are not improving. Go to the ER immediately if you develop shortness of breath, difficulty swallowing, or any other concerning symptoms. Patient Language: [place] Arabian Prescriptions: No Action lisinopril 10 mg tablet omeprazole 20 mg capsule,delayed release(DR/EC) 20 mg PO DAILY PNV no.95-ferrous fumarate-FA [] 28 mg iron- 800 mcg tablet 1 tablet PO DAILY Follow-up/Referrals: UNKNOWN,DOCTOR [Primary Care Provider] Time of Disposition: 18:04
--- OUTSIDE RECORDS SUMMARY | 2025-02-11 18:33 | XMS_ITS | Clinical Summary ---
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
--- OUTSIDE RECORDS SUMMARY | 2025-02-11 18:33 | XMS_ITS | Clinical Summary ---
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:58 PM ARCHITECTURAL ENGINEER Gender Identity Female 05/01/2022 10:35 AM ARCHITECTURAL ENGINEER Sexual Orientation Straight 05/01/2022 10 :35 AM ARCHITECTURAL ENGINEER Last Filed Vital Signs Vital Sign Reading [...] patient's age to complete this topic Insurance [facility] [place] [id number] [facility] [place] [id number] [facility] H[facility]/PPO Address: [id number] [place] [address] Care Teams Insurance Specialist Relationship Specialty Start Date End Date Kwame Barragan MD PCP - General Family Practice 03/25/23
--- OUTSIDE RECORDS SUMMARY | 2025-02-11 18:33 | XMS_ITS | Encounter Summary ---
Author Organization [facility] Address [facility] [place] [address] Care Team Providers Care Utility Sales Representative Name Role Phone Efe Can MD Primary Care Provider [phone] None, Provider Primary Care Provider Kwame Barnhart MD Primary Care Provider [phone] More VIIBill MD Primary Care Prov ider Encounter Details Date Type Department Care Team (Late st Contact Info) Description 12/09/2021 Hospital Follow-up Call [facility] [place] [address] Melissa Martines, RN Social History [...] Rule Out 03/19/2024 03/19/2024 03/19/2024 1:56 PM GOLF PROFESSIONAL documented as of this encounter Care Teams Utility Sales Representative Relationship Specialty Start Date End Date Efe Can MD [address] [place] [address] PCP - General OBGYN 08/03/21 05/21/22 None, Provider, MD PCP - General UNKNOWN PHYSICIAN SPECIALTY 05/22/22 02/21/23 Kwame Barragan MD [address] [place] [address] [phone] PCP - General FAMILY PRACTICE 02/22/23 12/02/24 Bill Craig MD [address] [place] [address] [phone] PCP - General FAMILY PRACTICE 12/03/24 documented as of this encounter
--- OUTSIDE RECORDS SUMMARY | 2025-02-11 18:33 | XMS_ITS | Clinical Summary ---
Author Organization [facility] Address [facility] [place] [address] Care Team Providers Care Telex Operator Name Role Phone Bill Craig MD Primary [...] loss 12/07/2021 Failure to progress in labor 12/07/2021 Delivery of by section 2021 12/01/2021 Class 3 severe obesity with body mass index (BMI) of 50.0 to 59.9 in adult 12/01/2021 Resolved Problems Problem Noted Date Diagnosed Date Resolved Date Gestational diabetes 12/01/2021 023 Subluxation of symphysis pub is during in third trimester 09/08/2021 09/08/2021 Pelvic pain affecting 09/08/2021 12/07/2021 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 [...] Comments Blood Pressure 126/88 03/19/2024 11:13 AM HAND ASSEMBLER FOR PULLER OVER Pulse 92 03/19/2024 11:13 AM HAND ASSEMBLER FOR PULLER OVER Temperature 36.3 C (97.4 F) 03/19/2024 11:13 AM HAND ASSEMBLER FOR PULLER OVER Respiratory Rate 16 2023 1:15 PM CDT Oxygen Saturation 96% 03/19/2024 11:13 AM HAND ASSEMBLER FOR PULLER OVER Inhaled Oxygen Concentration - - Weight 141.1 kg (311 lb) 03/19/2024 11:13 AM HAND ASSEMBLER FOR PULLER OVER Height 165.1 cm (5' 5) 2023 11:43 AM CDT Body Mass Index 51.75 2023 11:43 AM CDT Plan of Treatment Health Maintenance Due Date Last Done Comments Cervical Cancer Screening Pap Smear (Age 30 to 64) Every 3 Years 1994 Annual Physical 1997 Hepatitis C 2012 PHQ-2 (Physician [place]) 03/21/2024 09/02/2023 COVID-19 Vaccine ( season) 2024 09/05/2020, 08/02/2020 Cervical Cancer Screening Pap with HPV Testing (Age 30 to 64) Every 5 Years 2024 Cervical Cancer Screening with HPV 2024 Influenza Adult (#1) 2024 01/07/2022, 12/23/19 21 DTaP, Tdap and Td Vaccines (2 - Td or Tdap) 05/11/2026 05/11/2016, 05/21/1996, 06/22/1995, Additional history exists Hepatitis B Vaccines Completed 06/22/1995, 02/02/1995, 1994 Meningococcal Vaccine Aged Out 05/11/2016 No britt rain eligible based on patient's age to complete this topic HPV Vaccines Completed 11/17/2016, 06/20, 05/11/2016 Hepatitis A Vaccines Aged Out No long er eligible based on patient's age to complete this topic Meningococcal B Vaccine Aged Out No l onger eligible based on patient's age to complete this topic Pneumococcal Vaccine: Pediatrics (0 to 5 Years) and At-Risk Patients (6 to 49 Years) Aged Out No longer eligible based on patient's age to complete this topic RSV Immunizations Under 20 Months Aged Out No longer eligible based on patient's age to complete this topic Insurance R Advance Directives * Full Code (Latest Code Status on File) Date Activated Date Inactivated Comments 12/04/2021 1:11 PM 12/07/2021 6:54 PM * Full Code Date Activated Date Inactivated Comments 12/03/2021 6:13 PM 12/04/2021 1:11 PM * Full Code Date Activated Date Inactivated Comments 12/01/2021 1:07 AM 12/03/2021 6:13 PM Care Teams Telex Operator Relationship Specialty Start Date End Date Bill Craig MD [address] [place] [address], [address] [id number] PCP - General FAMILY PRACTICE 12/03/24
--- OUTSIDE RECORDS SUMMARY | 2025-02-11 18:33 | XMS_ITS | Encounter Summary ---
Author Organization [facility] - [facility] Address [facility] [place] [address] Care Team Providers Care Enlisted Aircrew/Aerial Observer/Gunner Name Role Phone Kwame Barragan MD Primary Care Provider [phone] Bill Craig MD Primary Care Prov ider Encounter Details Date Type Department Care Team (Late st Contact Info) Description 09/29/2023 MyChart Message Enc [facility] Medical Group Multispecialty Care - [facility] [address] [facility], [address] [place] [address] Margarita Ochoa MD [address] [place], [place] [phone] Prescription Question Social History Tobacco Use Types [...] Rule Out 03/19/2024 03/19/2024 03/19/2024 1:56 PM ART PREPARATOR Assessment Noted Time PHQ-9 Depression Total Score: 0 09/02/19 24 2:45 PM CDT documented as of this encounter Care Teams Enlisted Aircrew/Aerial Observer/Gunner Relationship Specialty Start Date End Date Kwame Barragan MD [address] [place] [address] [phone] PCP - General FAMILY PRACTICE 02/22/23 12/02/24 More Bill AVALOS MD [address] [place] [address] [phone] PCP - General FAMILY PRACTICE 12/03/24 documented as of this encounter
== END 2025-02-11 18:10 | disposition home or self-care (01) ==
PROVIDERS: Emergency Provider Nurse Practitioner
DX: J06.9 Acute upper respiratory infection, unspecified (principal)
CPT/HCPCS: 99211; G0463